=== PATIENT | female | born 1995 | race Native Hawaiian/Other Pacific Islander ===

== ENCOUNTER 2019-08-17 10:57 | Emergency (ER) | payer OTHER ==
[~2019-08-17] VITALS: Ht 162.6 cm; Wt 104.3 kg
[2019-08-17 11:52] LABS: POTASSIUM 3.9 mmol/L (3.6-5.2)
[2019-08-17 12:00] LABS: PLATELET COUNT 289 K/uL (152-353)
[2019-08-17 13:00] VITALS: BP 136/70; TEMP 98
== END 2019-08-17 13:07 | disposition home or self-care (01) ==
LOC: ED 10:57
PROVIDERS: Family Medicine
DX: K52.89 Other specified noninfective gastroenteritis and colitis (principal); E86.0 Dehydration
CPT/HCPCS: 36415; 80053; 81000; 81025; 85027; 96360; 96375; 99284; J2405

== ENCOUNTER 2020-06-15 19:12 | Outpatient (CLI) | payer OTHER | END 2020-06-15 21:14 | disposition home or self-care (01) | LOC: RAD 19:12 | DX: M54.9 Dorsalgia, unspecified (principal); M62.830 Muscle spasm of back ==